=== PATIENT | female | born 1965 | race Caucasian/White ===

== ENCOUNTER 2020-05-16 06:15 | Day surgery (SDC) | payer OTHER ==
[~2020-05-16] VITALS: Ht 165.1 cm; Wt 69.0 kg
[~2020-05-16 06:15] MED LIST: CETI10CA PO; ESTR1TAB15 PO; PROG100C16 PO
[2020-05-16 06:47] VITALS: BP 113/70
[2020-05-16] MEDS ORDERED: CHLORHEXIDINE 15 ML UDC ONE (06:52)
[2020-05-16] MEDS ORDERED: CHLORHEXIDINE 15 ML UDC MM ONE (07:00)
[2020-05-16] MEDS ORDERED: LACTATED RINGERS 1,000 ML IV SCH (07:00)
[2020-05-16] MEDS ORDERED: OXYMETAZOLINE NASAL SPRAY 0.05%,30ML ONE ×2 (07:41→07:55)
[2020-05-16] MEDS ORDERED: LIDOCAINE 1%, 20ML ONE (07:41)
[2020-05-16] MEDS ORDERED: EPINEPHRINE 1 MG/ML, 1ML ONE (07:41)
[2020-05-16] MEDS ORDERED: MUPIROCIN OINT 2%, 22GM ONE (07:41)
[2020-05-16] MEDS ORDERED: MIDAZOLAM 1 MG/ML, 2ML ONE (08:04)
[2020-05-16] MEDS ORDERED: PROPOFOL 10 MG/ML, 20ML ONE (08:04)
[2020-05-16] MEDS ORDERED: DEXAMETHASONE 4 MG/ML, 1ML ONE (08:04)
[2020-05-16] MEDS ORDERED: ROCURONIUM 10 MG/ML,10ML ONE (08:04)
[2020-05-16] MEDS ORDERED: FENTANYL PF 250 MCG/5ML ONE (08:04)
[2020-05-16] MEDS ORDERED: GLYCOPYRROLATE 0.2MG/1ML, 5ML ONE (08:04)
[2020-05-16] MEDS ORDERED: CEFAZOLIN 1,000 MG ONE (08:04)
[2020-05-16] MEDS ORDERED: ONDANSETRON 2MG/ML, 2ML IVPush PRN (09:30)
[2020-05-16] MEDS ORDERED: EPHEDRINE 50 MG/ML, 1ML IVPush PRN (09:30)
[2020-05-16] MEDS ORDERED: DIAZEPAM 5 MG/ML, 2ML IVPush PRN (09:30)
[2020-05-16] MEDS ORDERED: HYDROmorphone 1 MG/ML, 1ML INJ IVPush PRN (09:30)
[2020-05-16] MEDS ORDERED: MEPERIDINE/PF 25MG/0.5ML IVPush PRN (09:30)
[2020-05-16] MEDS ORDERED: MIDAZOLAM 1 MG/ML, 2ML IV PRN (09:30)
[2020-05-16] MEDS ORDERED: METHOCARBAMOL 1,000 MG in DEXTROSE 5% 100 ML IV PRN (09:30)
[2020-05-16] MEDS ORDERED: METOCLOPRAMIDE 5 MG/ML, 2ML IVPush PRN (09:30)
[2020-05-16] MEDS ORDERED: EPHEDRINE 50 MG/ML, 1ML IM PRN (09:30)
[2020-05-16] MEDS ORDERED: LABETALOL 5MG/ML, 20ML IV PRN (09:30)
[2020-05-16] MEDS ORDERED: ALBUTEROL/IPRATROPIUM 2.5MG/0.5MG, 3 ML NPPB PRN (09:30)
[2020-05-16] MEDS ORDERED: DIPHENHYDRAMINE 50 MG/ML, 1ML IVPush PRN (09:30)
[2020-05-16] MEDS ORDERED: HYDROcodone/APAP 7.5-325MG/15ML UDC PO PRN (09:30)
[2020-05-16] MEDS ORDERED: OXYcodone 5 MG/5 ML ORAL.SOL UDC PO PRN (09:30)
[2020-05-16] MEDS ORDERED: hydrALAzine 20 MG/ML, 1ML IV PRN (09:30)
[2020-05-16] MEDS ORDERED: HALOPERIDOL 5 MG/ML IV PRN (09:30)
[2020-05-16] MEDS ORDERED: FENTANYL PF 100 MCG/2ML IV PRN (09:30)
[2020-05-16] MEDS ORDERED: LORazepam 2 MG/ML, 1ML IVPush PRN (09:30)
[2020-05-16] MEDS ORDERED: ONDANSETRON ODT 4 MG ONE (11:25)
[2020-05-16] MEDS ORDERED: ONDANSETRON ODT 4 MG PO ONE (11:30)
== END 2020-05-16 11:30 | disposition home or self-care (01) ==
LOC: OUT 06:15
PROVIDERS: ATTEND Otolaryngology
DX: J34.2 Deviated nasal septum (principal); J34.3 Hypertrophy of nasal turbinates; Z88.1 Allergy status to other antibiotic agents; Z87.891 Personal history of nicotine dependence; Z79.899 Other long term (current) drug therapy; Z98.890 Other specified postprocedural states
CPT/HCPCS: 30520; 30802; 88305; 88311; J0171; J0690; J1100; J2250; J2704; J3010; J7120; U0003